=== PATIENT | male | born 1990 | race African-American/Black ===

== ENCOUNTER 2018-11-01 02:56 | Emergency (ER) | payer BC ==
[2018-11-01 03:30] VITALS: BMI 28.3
[2018-11-01] MEDS ORDERED: IBUPROFEN 600 MG TABLET (FP) PO ONE (03:46)
--- NOTE | 2018-11-01 03:47 | PDOC ---
History of Present Illness - General Chief Complaint: Chest Pain Stated Complaint: CHEST PAIN Time Seen by Provider: 11/01/18 03:15 - History of Present Illness Initial Comments: 11/01/18 04:13 28 year old man with no pmhx who presents with several months of intermittent chest pain that intially started when bench pressing. He was evaluated by his PCP who sent him to PT without relief. The patient reports that he came to the ED today because he had some palpitations today and earlier this week. He states sometimes gets worse when he takes a deep breath. He denies recent illness, fever, cough congestion, denies steroid use. He has no other complaints. ROS GENERAL/CONSTITUTIONAL: No fever or chills. No weakness. HEAD, EYES, EARS, NOSE AND THROAT: No change in vision. No ear pain or discharge. No sore throat. CARDIOVASCULAR: No chest pain or shortness of breath RESPIRATORY: No cough, wheezing, or hemoptysis. GASTROINTESTINAL: No nausea, vomiting, diarrhea or constipation. GENITOURINARY: No dysuria, frequency, or change in urination. MUSCULOSKELETAL: No joint or muscle swelling or pain. No neck or back pain. SKIN: No rash NEUROLOGIC: No headache, vertigo, loss of consciousness, or change in strength/ sensation. PE GENERAL: Awake, alert, and fully oriented, in no acute distress HEAD: No signs of trauma, normocephalic, atraumatic EYES: EOMI, sclera anicteric, conjunctiva clear ENT: oropharynx clear without exudates. Moist mucosa NECK: Normal ROM, supple LUNGS: No distress, speaks full sentences, clear to auscultation bilaterally HEART: Regular rate and rhythm, normal S1 and S2, no murmurs, rubs or gallops, peripheral pulses normal and equal bilaterally. CHEST: chest pain, nonreproducible ABDOMEN: Soft, nontender, normoactive bowel sounds. No guarding, no rebound. No masses EXTREMITIES : Normal inspection, Normal range of motion, no edema. No clubbing or cyanosis. NEUROLOGICAL: Cranial nerves II through XII grossly intact. Normal speech, no focal sensorimotor deficits SKIN: Warm, Dry, normal turgor, no rashes or lesions noted MDM DDX including but not limited to: pleuritis vs pneumomediastinum vs msk W/U: - cardiac profile, cbc, cmp, cxr ED Course: cxr: possible pneumomediatsinutm lung marking on L lung field CT chest concerning for pneumomediastium vs thickened endocardium CT surgery called by pre-attending Dr. Oviedo who spoke with Dr. Clifford who recommends barium swallow and echo Workup will require admission Plan for admission Leena Coughlin, PGY2 Emergency Medicine Past History - Past Medical History Allergies/Adverse Reactions: Allergies Allergy/AdvReac Type Severity Reaction Status Date / Time No Known Allergies Allergy Verified 11/01/18 04:01 Home Medications: Ambulatory Orders NK [No Known Home Medication] 11/01/18 COPD: No - Suicide/Smoking/Psychosocial Hx Smoking History: Never smoked Hx Alcohol Use: Yes (socially) Drug/Substance Use Hx: Yes (marijuana) *Physical Exam - Vital Signs Last Vital Signs Temp Pulse Resp BP Pulse Ox 98.2 F 74 19 116/59 L 97 11/01/18 03:00 11/01/18 03:00 11/01/18 03:00 11/01/18 03:00 11/01/18 03:00 ED Treatment Course - LABORATORY CBC & Chemistry Diagram: 11/01/18 03:45 11/01/18 03:45 - RADIOLOGY Radiology Studies Ordered: Category Date Time Status CXRPORT [CHEST X-RAY PORTABLE*] [RAD] Stat Radiology 11/01/18 03:39 Ordered *DC/Admit/Observation/Transfer Diagnosis at time of Disposition: Chest pain - Discharge Dispostion Disposition: HOME Condition at time of disposition: Stable - Referrals Referrals: Dariel Rivera MD [Staff Physician] - - Patient Instructions Printed Discharge Instructions: DI for Atypical Chest Pain Additional Instructions: Please follow-up with cardiology as instructed. Avoid strenuous exertional activity. Return immediately for worsening symptoms - Post Discharge Activity
[2018-11-01 03:56] LABS: BASO % 0.7 % (0-2.0); EOS % 0.9 % (0-4.5); HEMATOCRIT 39.6 % (35.4-49); HEMOGLOBIN 13.5 GM/dL (11.7-16.9); LYMPH % 43.8 % (8-40); MCH 30.9 pg (25.7-33.7); MCHC 34.1 g/dl (32.0-35.9); MEAN CELL VOLUME 90.5 fl (80-96); MEAN PLT VOLUME 9.1 fl (7.5-11.1); MONO % 6.5 % (3.8-10.2); NEUT % 48.1 % (42.8-82.8); PLATELET COUNT 209 K/MM3 (134-434); RBC 4.38 M/mm3 (4.00-5.60); RDW 15.3 % (11.9-15.9); WHITE BLOOD COUNT 8.7 K/mm3 (4.0-10.0)
[2018-11-01 04:30] LABS: ALBUMIN 3.6 g/dl (3.4-5.0); BILIRUBIN,TOTAL 0.3 mg/dL (0.2-1); BLOOD UREA NITROGEN 17.5 mg/dL (7-18); CALCIUM 8.6 mg/dL (8.5-10.1); CREATININE 1.1 mg/dL (0.55-1.3); POTASSIUM 3.9 mmol/L (3.5-5.1); TOT PROT 7.7 g/dl (6.4-8.2)
--- NOTE | 2018-11-01 06:48 | PDOC ---
Attending Attestation - Resident Resident Name: Leena Coughlin - ED Attending Attestation I have performed the following: I have examined & evaluated the patient, The case was reviewed & discussed with the resident, I agree w/resident's findings & plan - HPI HPI: 11/01/18 06:41 see resident hpi - Physicial Exam PE: 11/01/18 06:41 agree with resident exam - Medical Decision Making 11/01/18 06:41 28 yo male with CP x several months CXR/CT had questionable pneumomediastinum in initial review though read as negative by IOC call placed to thoracic surgery, Dr Clifford, who rec barium swallow will admit for further evaluation
--- NOTE | 2018-11-01 09:45 | PDOC ---
*Physical Exam - Vital Signs Last Vital Signs Temp Pulse Resp BP Pulse Ox 98.3 F 73 18 124/65 96 11/01/18 06:49 11/01/18 06:49 11/01/18 06:49 11/01/18 06:49 11/01/18 06:49 - Physical Exam Comments: 11/01/18 09:40 Patient endorsed to me by Dr. burnett. Patient is a 28-year-old male who presented to the ER with intermittent sharp chest pain for over a year. Pain is nonexertional and is not associated with any other symptomatology. In the ER, patient is asymptomatic, resting comfortably with stable vital signs. EKG shows no evidence of acute ischemia, dysrhythmia or LVH. No evidence of HOCM is identified. Initial chest x-ray revealed questionable pneumomediastinum on the left which was ruled out by a CT of chest. Patient does not wish to be admitted and would like to undergo an outpatient evaluation. At this time, I do not suspect ACS/PE or esophageal perforation. Will discharge with cardiology follow- up. In patient instructed to avoid strenuous exertion ED Treatment Course - LABORATORY CBC & Chemistry Diagram: 11/01/18 03:45 11/01/18 03:45 - ADDITIONAL ORDERS Additional order review: Laboratory Results 11/01/18 11/01/18 03:45 03:45 Sodium 141 Potassium 3.9 Chloride 105 Carbon Dioxide 28 Anion Gap 8 BUN 17.5 Creatinine 1.1 Est GFR (CKD-EPI)AfAm 106.06 Est GFR (CKD-EPI)NonAf 91.51 Random Glucose 108 H Calcium 8.6 Total Bilirubin 0.3 AST 22 ALT 20 Alkaline Phosphatase 50 Creatine Kinase 191 Creatine Kinase Index No Result Required. CK-MB (CK-2) < 1.0 Troponin I < 0.02 Total Protein 7.7 Albumin 3.6 TSH 7.29 H 11/01/18 03:45 RBC 4.38 MCV 90.5 MCHC 34.1 RDW 15.3 MPV 9.1 Neutrophils % 48.1 Lymphocytes % 43.8 H Monocytes % 6.5 Eosinophils % 0.9 Basophils % 0.7 - Medications Given in the ED: ED Medications Discontinued Medications Generic Name Dose Route Start Last Admin Trade Name Freq PRN Reason Stop Dose Admin Ibuprofen 600 mg 11/01/18 03:46 09/11/19 04:04 Motrin - PO 11/01/18 03:47 600 mg ONCE ONE Administration *DC/Admit/Observation/Transfer Diagnosis at time of Disposition: Chest pain Qualifiers: Chest pain type: unspecified Qualified Code(s): R07.9 - Chest pain, unspecified - Discharge Dispostion Disposition: HOME Condition at time of disposition: Stable Decision to Admit order: No - Referrals Referrals: Dariel Rivera MD [Staff Physician] - - Patient Instructions Printed Discharge Instructions: DI for Atypical Chest Pain Additional Instructions: Please follow-up with cardiology as instructed. Avoid strenuous exertional activity. Return immediately for worsening symptoms - Post Discharge Activity
[2018-11-01 09:58] VITALS: BP 118/60; PULSE 68; TEMP 98.4
--- NOTE | 2018-11-01 11:04 | EKG ---
Test Reason : Blood Pressure : / mmHG Vent. Rate : 074 BPM Atrial Rate : 074 BPM P-R Int : 206 ms QRS Dur : 084 ms QT Int : 358 ms P-R-T Axes : 039 043 040 degrees QTc Int : 397 ms NORMAL SINUS RHYTHM NORMAL ECG NO PREVIOUS ECGS AVAILABLE Confirmed by NESTOR MEI, FOREST ([id number]) on 11/01/2018 11:04:19 AM Referred By: Confirmed By:FOREST BAEZ MD
== END 2018-11-01 09:57 | disposition home or self-care (01) ==
LOC: JER 02:56 → JERBED 06:59 → UNDOADMIN 06:59 → JER 09:57
DX: R07.9 Chest pain, unspecified (principal)
CPT/HCPCS: 36415; 71045-TC-FY; 71046-TC-FY; 71250-TC; 80053; 82550; 82553; 84443; 84484; 85025; 93005; 93010; 99284-25

== ENCOUNTER 2023-03-08 20:39 | Emergency (ER) | payer BC ==
[2023-03-08 20:56] VITALS: BP 135/73; PULSE 79; RESP 18; TEMP 98.3; BMI 25.9
== END 2023-03-08 22:51 | disposition home or self-care (01) ==
LOC: JER 20:39
DX: F41.9 Anxiety disorder, unspecified (principal); F43.9 Reaction to severe stress, unspecified
CPT/HCPCS: 99282-25